=== PATIENT | female | born 1970 ===

== ENCOUNTER 2017-10-29 08:03 | Emergency (ER) | payer MEDICAID ==
[2017-10-29 08:10] VITALS: BMI 30.1
[2017-10-29 08:12] VITALS: BP 152/99; PULSE 93; RESP 20; TEMP 98.1; O2SAT 98
--- NOTE | 2017-10-29 08:43 | ED PDOC ---
Upper Extremity Pain/Injury Time Seen by Provider: 10/29/17 08:25 Chief Complaint (Nursing): Upper Extremity Problem/Injury Chief Complaint (Provider): left shoulder pain History Per: Patient History/Exam Limitations: no limitations Onset/Duration Of Symptoms: Days (x3) Current Symptoms Are (Timing): Still Present Quality: "Pain" Exacerbating Factor(s): Other (dangling of arm) Additional Complaint(s): Olimpia Morgan is a 47 year old female, with a past medical history of diabetes and HTN, who presents to the emergency department complaining of left shoulder pain onset for x3 days. Patient states pain is worst when arm is dangling. She denies any trauma or injuries, weakness, paresthesias, chest pain or shortness of breath. No further medical complaints. PMD: None provided. Past Medical History Reviewed: Historical Data, Nursing Documentation, Vital Signs Vital Signs: Last Vital Signs Temp 98.1 F 10/29/17 08:10 Pulse 93 H 10/29/17 08:10 Resp 20 10/29/17 08:10 BP 152/99 H 10/29/17 08:10 Pulse Ox 98 10/29/17 08:10 - Medical History PMH: Diabetes, HTN Denies: Hepatitis, HIV, Chronic Kidney Disease, Seizures, Sexually Transmitted Disease - Surgical History Surgical History: No Surg Hx - Family History Family History: States: Unknown Family Hx - Social History Current smoker - smoking cessation education provided: Yes (Heavy smoker) - Immunization History Hx Tetanus Toxoid Vaccination: Yes (4 yrs ago) - Home Medications Home Medications: Ambulatory Orders Medication Instructions Recorded Insulin Aspart, Recombinant 30 units SC HS 04/29/16 [Novolog] Insulin Glargine, Recombina 10 units SC BID 04/29/16 [Lantus] Lisinopril [Zestril] 1 tab PO DAILY 04/29/16 Metformin HCl [Glucophage Xr] 1 tab PO DAILY 04/29/16 Omeprazole 1 cap PO DAILY 04/29/16 Gabapentin [Neurontin] 300 mg PO HS #30 cap 05/02/16 Nicotine 14 mg/24 hr [Nicoderm CQ] 1 patch TD DAILY #0 patch 05/02/16 Cyclobenzaprine [Cyclobenzaprine 10 mg PO Q8 #10 tab 10/29/17 HCl] Naproxen [Naprosyn] 500 mg PO Q12H #20 tab 10/29/17 - Allergies Allergies/Adverse Reactions: Allergies Allergy/AdvReac Type Severity Reaction Status Date / Time Penicillins Allergy RASH Verified 04/29/16 14:32 Review of Systems ROS Statement: Except As Marked, All Systems Reviewed And Found Negative Musculoskeletal: Positive for: Shoulder Pain (left ) Physical Exam - Reviewed Nursing Documentation Reviewed: Yes Vital Signs Reviewed: Yes - Physical Exam Appears: Positive for: Non-toxic Head Exam: Positive for: ATRAUMATIC, NORMOCEPHALIC Skin: Positive for: Normal Color, Warm, Dry Eye Exam: Positive for: Normal appearance Neck: Positive for: Painless ROM Cardiovascular/Chest: Positive for: Regular Rate, Rhythm. Negative for: Murmur Respiratory: Positive for: Normal Breath Sounds. Negative for: Respiratory Distress Pulses-Radial (L): 2+ Pulses-Radial (R): 2+ Extremity: Positive for: Normal ROM (full ROM of left shoulder), Tenderness ( posterior scapula. No motor/sensory deficits). Negative for: Deformity (left shoulder) Neurologic/Psych: Positive for: Alert, Oriented. Negative for: Motor/Sensory Deficits - ECG O2 Sat by Pulse Oximetry: 98 (RA) Pulse Ox Interpretation: Normal Medical Decision Making Medical Decision Making: Initial Plan: --Urine --Toradol 30 mg IM --Shoulder left [RAD] --Reevaluation 08:54 Shoulder X-Ray FINDINGS: BONES: No acute fracture or destructive bony lesion identified. JOINTS: Glenohumeral and acromioclavicular joints appear unremarkable. SOFT TISSUES: Soft tissue calcifications seen the region of rotator cuff suggestive of calcific tendinopathy. Clinically correlate further. MRI may be useful for further characterization if clinically warranted. OTHER FINDINGS: None. IMPRESSION: No acute fracture or dislocation left shoulder. Calcific tendinopathy suggested. Scribe Attestation: Documented by Jose Martin Gross, acting as a scribe for Naldo Vides MD Provider Scribe Attestation: All medical record entries made by the Scribe were at my direction and personally dictated by me. I have reviewed the chart and agree that the record accurately reflects my personal performance of the history, physical exam, medical decision making, and the department course for this patient. I have also personally directed, reviewed, and agree with the discharge instructions and disposition. Disposition - Clinical Impression Clinical Impression: Tendinitis - Patient ED Disposition Is Patient to be Admitted: No Counseled Patient/Family Regarding: Studies Performed, Diagnosis, Need For Followup, Rx Given - Disposition Referrals: [facility] [Outside] Disposition: Routine/Home Disposition Time: 10:21 Condition: FAIR Prescriptions: Cyclobenzaprine [Cyclobenzaprine HCl] 10 mg PO Q8 #10 tab Naproxen [Naprosyn] 500 mg PO Q12H #20 tab Instructions: Tendonitis Forms: [facility] (Frisian)
--- NOTE | 2017-10-29 08:55 | RAD ---
PROCEDURE: Radiographs of the Left Shoulder HISTORY: pain COMPARISON: No prior. FINDINGS: BONES: No acute fracture or destructive bony lesion identified. JOINTS: Glenohumeral and acromioclavicular joints appear unremarkable. SOFT TISSUES: Soft tissue calcifications seen the region of rotator cuff suggestive of calcific tendinopathy. Clinically correlate further. MRI may be useful for further characterization if clinically warranted. OTHER FINDINGS: None. IMPRESSION: No acute fracture or dislocation left shoulder. Calcific tendinopathy suggested.
== END 2017-10-29 10:37 | disposition home or self-care (01) ==
LOC: H.ER 08:03
DX: M75.22 Bicipital tendinitis, left shoulder (principal); E11.9 Type 2 diabetes mellitus without complications; Z88.0 Allergy status to penicillin; Z79.4 Long term (current) use of insulin; I10 Essential (primary) hypertension
CPT/HCPCS: 73030; 96372; 99283; J1885

== ENCOUNTER 2018-05-14 21:46 | Inpatient (IN) | payer MEDICAID ==
[2018-05-14 21:46] VITALS: BMI 30.1
[2018-05-14] MEDS ORDERED: Sodium Chloride 0.9% 1,000 ML IV STA (22:08)
--- NOTE | 2018-05-14 22:11 | ED PDOC ---
HPI: Abdomen Time Seen by Provider: 05/14/18 21:53 Chief Complaint (Nursing): Abdominal Pain Chief Complaint (Provider): abdominal pain History Per: Patient History/Exam Limitations: no limitations Onset/Duration Of Symptoms: Hrs (3) Current Symptoms Are (Timing): Still Present Location Of Pain/Discomfort: Epigastric Associated Symptoms: Nausea, Vomiting Additional Complaint(s): 48 y/o female history of hypertension, type II diabetes brought in by EMS for evaluation of epigastric abdominal pain x hours. Associated multiple episodes of vomiting. Denies fever, chest pain, shortness of breath, palpitations, changes in bowel movements, urinary symptoms, recent travel. Past Medical History Reviewed: Historical Data, Nursing Documentation, Vital Signs Vital Signs: Last Vital Signs Temp 97.9 F 05/14/18 21:52 Pulse 120 H 05/14/18 21:52 Resp 19 05/14/18 21:52 BP 119/69 05/14/18 21:52 Pulse Ox 97 05/14/18 21:52 - Medical History PMH: Diabetes, HTN Denies: Hepatitis, HIV, Chronic Kidney Disease, Seizures, Sexually Transmitted Disease - Surgical History Surgical History: - Family History Family History: States: Unknown Family Hx - Immunization History Hx Tetanus Toxoid Vaccination: Yes (4 yrs ago) - Home Medications Home Medications: Ambulatory Orders Medication Instructions Recorded Omeprazole 1 cap PO DAILY 04/29/16 Nicotine 14 mg/24 hr [Nicoderm CQ] 1 patch TD DAILY #0 patch 05/02/16 Gabapentin [Neurontin] 300 mg PO TID 05/15/18 Ibuprofen [Motrin Tab] 800 mg PO PRN PRN 05/15/18 Lisinopril [Zestril] 5 mg PO DAILY 05/15/18 MetFORMIN [glucOPHAGE] 1,000 mg PO BID 05/15/18 - Allergies Allergies/Adverse Reactions: Allergies Allergy/AdvReac Type Severity Reaction Status Date / Time Penicillins Allergy RASH Verified 04/29/16 14:32 Review of Systems ROS Statement: Except As Marked, All Systems Reviewed And Found Negative Gastrointestinal: Positive for: Nausea, Vomiting, Abdominal Pain Physical Exam - Reviewed Nursing Documentation Reviewed: Yes Vital Signs Reviewed: Yes - Physical Exam Appears: Positive for: Well, Non-toxic, Uncomfortable Head Exam: Positive for: ATRAUMATIC, NORMAL INSPECTION, NORMOCEPHALIC Skin: Positive for: Normal Color Eye Exam: Positive for: Normal appearance ENT: Positive for: Normal ENT Inspection Cardiovascular/Chest: Positive for: Regular Rate, Rhythm Respiratory: Positive for: Normal Breath Sounds Gastrointestinal/Abdominal: Positive for: Bowel Sounds, Soft, Tenderness (epigastric) Back: Positive for: Normal Inspection Extremity: Positive for: Normal ROM Neurologic/Psych: Positive for: Alert, Oriented (x) - Laboratory Results Result Diagrams: 05/14/18 22:20 05/14/18 22:20 - ECG ECG: Positive for: Viewed By Me (reviewed by ED attending) ECG Rhythm: Positive for: Sinus Tachycardia O2 Sat by Pulse Oximetry: 97 - Progress ED Course And Treament: -accucheck -cbc -cmp -lipase -urinalysis -abdomen limited u/s -IV zofran -IV pepcid -IV NS Bolud -IV reglan Date of service: 12/30/2017 History Epigastric pain. Vomiting. Comparison None. Technique Sonographic evaluation of the right upper quadrant of the abdomen. Findings Liver Measures 17.6 cm in length. Increased echogenicity of the liver parenchyma. Smooth contour. No mass. No intrahepatic bile duct dilatation. Gallbladder Gallbladder wall thickness is 0.15 mm. No wall edema. No gallstones. Negative [place] sign. Common bile duct Measures 0.34 mm. No stones. No dilatation. Pancreas Unclear. Pancreatic tail not seen. Pancreatic duct not visualized. Right kidney Measures 10.7 x 4.5 x 5.0 cm. Normal echogenicity. No calculus, mass, or hydronephrosis. Aorta Measures 1.5 cm. No aneurysmal dilatation. IVC Unremarkable. Other Findings None. Impression Mild fatty liver. Limited visualization of pancreas. Otherwise, unremarkable study. On re-eval, patient still with persistent pain, vomiting. CT abd/pelvis ordered CT SCAN OF THE ABDOMEN AND PELVIS WITH CONTRAST. CLINICAL HISTORY: Abdominal pain. TECHNIQUE: Multiple axial and coronal CT images were obtained through the abdomen and pelvis after administration of intravenous contrast material. COMPARISON: 09/06/2015. COMMENTS: Small sliding hiatal hernia, unchanged. Mild diffuse thickening of the mid aspect of the transverse colon. The liver is enlarged with decreased attenuation without mass or defect. There is no intra or extrahepatic biliary ductal dilatation. The spleen is normal. The gallbladder is within normal limits. The pancreas is of normal contour and attenuation characteristics. There is no evidence of adrenal mass. Both kidneys demonstrate prompt and equal nephrograms. The kidneys are normal in size, shape and configuration. There is no evidence of renal or ureteral mass. No renal or ureteral calculi are identified. There is no hydroureter or hydronephrosis. No evidence for appendicitis. There is no bowel wall thickening. No evidence for small or large bowel obstruction. There is no evidence of abdominal ascites or lymphadenopathy. There is no evidence of intrinsic or extrinsic bladder mass. There is no pelvic ascites or lymphadenopathy. Enlarged fibroid uterus. Images of the lung bases show no evidence of pleural or parenchymal mass. There are no pleural effusions. The bony structures are free of lytic or blastic lesions. IMPRESSION: Mild diffuse thickening of the mid aspect of the transverse colon. This is probably secondary to underdistention/spasm. No evidence of acute abdominal or pelvic pathology. Patient still with pain, vomiting. Will admit for intractable pain/vomiting, dehydration. Disposition - Clinical Impression Clinical Impression: Gastroparesis, Intractable vomiting, Dehydration - Disposition Disposition Time: 00:45 Condition: FAIR
[2018-05-14 22:34] LABS: BASO % 0.6 % (0.0-2.0); HEMOGLOBIN 15.5 g/dL (12.0-16.0); LYMPH # 1.1 K/uL (1.0-4.3); LYMPH % 16.7 % (20.0-40.0); MEAN CELL VOLUME 93.5 fl (81.0-99.0); MEAN CORPUSCULAR HGB CONC 33.2 g/dL (33.0-37.0); MEAN PLATELET VOLUME 7.7 fl (7.2-11.7); MONO # 0.3 K/uL (0.0-0.8); MONO % 4.5 % (0.0-10.0); NEUT # 5.3 K/uL (1.8-7.0); NEUT % 78.2 % (50.0-75.0); NRBC % 0.1 % (0.0-0.0); RBC 4.98 Mil/uL (3.80-5.20); RED CELL DISTRIBUTION WIDTH 13.9 % (11.5-14.5); WHITE BLOOD COUNT 6.8 K/uL (4.8-10.8)
[2018-05-14 22:43] LABS: ALB/GLOB RATIO 1.3 (1.0-2.1); ALBUMIN 5.4 g/dL (3.5-5.0); ALT/SGPT 115 U/L (9-52); AST/SGOT 155 U/L (14-36); BLOOD UREA NITROGEN 16 mg/dl (7-17); CALCIUM 10.6 mg/dL (8.4-10.2); GFR NON-AFRICAN AMERICAN > 60; LIPASE 95 U/L (23-300)
[2018-05-15 00:15] LABS: ABG ALLEN TEST YES; ARTERIAL BLOOD GAS HCO3 18.3 mmol/L (21-28); ARTERIAL BLOOD GAS HEMOGLOBIN 14.8 g/dL (11.7-17.4); ARTERIAL BLOOD GAS O2 CAPACITY 19.7 mL/dL (16-24); ARTERIAL BLOOD GAS O2 CONTENT 19.4 ML/dL (15-23); ARTERIAL BLOOD GAS O2 SAT 98.3 % (95-98); ARTERIAL BLOOD GAS PCO2 31 mm/Hg (35-45); ARTERIAL BLOOD GAS PH 7.33 (7.35-7.45); ARTERIAL BLOOD GAS PO2 89 mm/Hg (80-100); ARTERIAL BLOOD GAS TCO2 17.3 mmol/L (22-28)
[2018-05-15 00:32] LABS: URINE BILIRUBIN NEGATIVE (NEGATIVE); URINE BLOOD NEGATIVE (NEGATIVE); URINE CLARITY SLIGHTY-CLOUDY (Clear); URINE COLOR AMBER (YELLOW); URINE GLUCOSE (UA) 150 mg/dL (Normal); URINE LEUKOCYTE ESTERASE NEG Leu/uL (Negative); URINE PROTEIN 30 mg/dL (NEGATIVE); URINE UROBILINOGEN 0.2-1.0 mg/dL (0.2-1.0)
[2018-05-15] MEDS ORDERED: Morphine 4 MG/ML VIAL IV ONE (00:34)
[2018-05-15] MEDS ORDERED: Sodium Chloride 0.9% 1,000 ML IV STA ×2 (00:36→00:39)
[2018-05-15] MEDS ORDERED: Morphine 4 MG/ML VIAL ONE ×3 (00:38→06:33)
[2018-05-15] MEDS ORDERED: Iohexol 300 100 ML IJ ONE (00:53)
[2018-05-15] MEDS ORDERED: Sodium Chloride 0.9% 50 ML IV ONE (00:53)
[2018-05-15] MEDS: Sodium Chloride 0.9% 1,000 ML IV SCH ×3 (06:42→22:50)
--- NOTE | 2018-05-15 07:33 | RAD ---
Date of service: 05/15/2018 HISTORY: admit COMPARISON: 04/29/2016 FINDINGS: LUNGS: No active pulmonary disease. PLEURA: No significant pleural effusion identified, no pneumothorax apparent. CARDIOVASCULAR: No aortic atherosclerotic calcification present. Normal cardiac size. No pulmonary vascular congestion. OSSEOUS STRUCTURES: Slight rightward thoracic convexity.-may be positional VISUALIZED UPPER ABDOMEN: Normal. OTHER FINDINGS: None. IMPRESSION: No active disease.
--- NOTE | 2018-05-15 07:47 | CARD ---
APPROVED REPORT Date of service: 05/15/2018 EKG Measurement Heart [id number] <Conclusion> Sinus tachycardia Otherwise normal ECG
--- NOTE | 2018-05-15 08:13 | CT ---
Date of service: 05/15/2018 PROCEDURE: CT Abdomen and Pelvis with contrast HISTORY: upper abd pain, vomiting COMPARISON: 09/06/2015 TECHNIQUE: Contrast dose: 90 mL Omnipaque 300 Radiation dose: Total exam DLP = 713 mGy-cm. This CT exam was performed using one or more of the following dose reduction techniques: Automated exposure control, adjustment of the mA and/or kV according to patient size, and/or use of iterative reconstruction technique. FINDINGS: LOWER THORAX: On single image 4 mm ground-glass opacity pleural-based borders lingula and likely perifissural. Nonspecific of doubtful clinical significance. Mitral annular prominent calcifications apparent unusual for this patient's age. Consider cardiology consultation. LIVER: Diffuse fatty liver-similar. No gross lesion or ductal dilatation. GALLBLADDER AND BILE DUCTS: Unremarkable. PANCREAS: Unremarkable. No gross lesion or ductal dilatation. SPLEEN: Unremarkable. ADRENALS: Unremarkable. No mass. KIDNEYS AND URETERS: Unremarkable. No hydronephrosis. No solid mass. VASCULATURE: Suspect mitral annular prominent calcification and bilateral scattered atherosclerotic vascular calcifications for example at each groin noted. No aortic aneurysm. There is presence of aortic atherosclerotic calcification and mural plaque on cross sectional studies. BOWEL: Unremarkable. No obstruction. No gross mural thickening. APPENDIX: Normal appendix. PERITONEUM: Unremarkable. No free fluid. No free air. LYMPH NODES: Unremarkable. No enlarged lymph nodes. BLADDER: Bladder is underdistended and compressed by a enlarged (inferred) fibroid uterus. Few nabothian cysts also possible REPRODUCTIVE: . Enlarged (inferred) fibroid uterus. Few nabothian cysts also possible BONES: No acute fracture. OTHER FINDINGS: None. IMPRESSION: No bowel obstruction or free air. No mural thickening. No diverticulitis. No appendicitis. Enlarged fibroid uterus. Hepatic steatosis Suspect mitral annular prominent calcification and bilateral scattered atherosclerotic vascular calcifications for example at each groin noted. No aortic aneurysm. There is presence of aortic atherosclerotic calcification and mural plaque on cross sectional studies. Consider cardiology consultation for further evaluation patient is 48 years of age is noted . Excluding the cardiovascular and liver findings, the preliminary [facility] report is concordant
[2018-05-15 08:31] LABS: BASO # 0.1 K/uL (0.0-0.2); BASO % 0.7 % (0.0-2.0); EOS % 0.1 % (0.0-4.0); HEMOGLOBIN 12.3 g/dL (12.0-16.0); LYMPH # 1.9 K/uL (1.0-4.3); LYMPH % 26.7 % (20.0-40.0); MEAN CELL VOLUME 94.7 fl (81.0-99.0); MEAN CORPUSCULAR HEMOGLOBIN 31.3 pg (27.0-31.0); MEAN CORPUSCULAR HGB CONC 33.1 g/dL (33.0-37.0); MEAN PLATELET VOLUME 7.4 fl (7.2-11.7); MONO # 0.6 K/uL (0.0-0.8); MONO % 7.8 % (0.0-10.0); NEUT # 4.7 K/uL (1.8-7.0); NEUT % 64.7 % (50.0-75.0); NRBC % 0.1 % (0.0-0.0); RBC 3.93 Mil/uL (3.80-5.20); RED CELL DISTRIBUTION WIDTH 13.9 % (11.5-14.5); WHITE BLOOD COUNT 7.2 K/uL (4.8-10.8)
--- NOTE | 2018-05-15 08:51 | US ---
Date of service: 05/14/2018 HISTORY: epigastric pain, vomiting COMPARISON: None. TECHNIQUE: Sonographic evaluation of the right upper quadrant of the abdomen. FINDINGS: LIVER: Measures 17.6 cm in length. Slight diffuse increased echogenicity of the liver parenchyma. No mass. No intrahepatic bile duct dilatation. GALLBLADDER: Unremarkable. No gallstones. COMMON BILE DUCT: Measures 3.4 mm. No stones. No dilatation. PANCREAS: Unremarkable as visualized. Pancreatic tail is not clearly identified No mass. No ductal dilatation. RIGHT KIDNEY: Measures 10.7 x 4.5 x 5.0 cm in length. Normal echogenicity. No calculus, mass, or hydronephrosis. AORTA: No aneurysmal dilatation. IVC: Unremarkable. OTHER FINDINGS: None . IMPRESSION: Probable mild hepatic steatosis. Pancreatic tail not clearly identified. No pathology appreciated regarding the portions of the pancreas visualized Concordant results (preliminary interpretation) provided by [facility].
[2018-05-15 09:03] LABS: ALB/GLOB RATIO 1.4 (1.0-2.1); ALT/SGPT 78 U/L (9-52); AST/SGOT 72 U/L (14-36); BLOOD UREA NITROGEN 12 mg/dl (7-17); CALCIUM 8.8 mg/dL (8.4-10.2); GFR NON-AFRICAN AMERICAN > 60; HDL CHOLESTEROL 72 MG/DL (30-70)
[2018-05-15 09:04] LABS: LDL CHOLESTEROL 75 mg/dL (0-129)
[2018-05-15 09:32] LABS: SQUAMOUS EPITHIAL < 1 /hpf (0-5); URINE BILIRUBIN NEGATIVE (NEGATIVE); URINE BLOOD NEGATIVE (NEGATIVE); URINE CLARITY SLIGHTY-CLOUDY (Clear); URINE COLOR YELLOW (YELLOW); URINE GLUCOSE (UA) 50 mg/dL (Normal); URINE LEUKOCYTE ESTERASE NEG Leu/uL (Negative); URINE PROTEIN 30 mg/dL (NEGATIVE)
--- NOTE | 2018-05-15 16:12 | CP.PCM.HP ---
History of Present Illness - History of Present Illness History of Present Illness: CC: Abdominal pain. 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 Worsening symptoms: Tachycardia on EKG. Aggravated factor: Position change. Pt denied: Fever, chills, diarrhea, urinary symptoms, CP, palpitations, dizziness, SOB, cough, sick contact, recent travel out of [place]. Abd/Pelv CT with contrast: Hepatic Steatosis. Enlarged fibroid uterus. Atherosclerotic vascular calcifications, Aortic atherosclerotic calcification and mural plaque on cross sectional studies. CXR: No active disease. EKG: Sinus tachycardia. Present on Admission - Present on Admission Any Indicators Present on Admission: No Review of Systems - EENT Eyes: Requires Corrective Lenses Ears: Other (negative) Nose/Mouth/Throat: Other (negative) - Cardiovascular Cardiovascular: Other (negative) - Respiratory Respiratory: Other (negative) - Gastrointestinal Gastrointestinal: Abdominal Pain, Nausea, Vomiting - Genitourinary Genitourinary: Other (negative) - Musculoskeletal Musculoskeletal: Other (negative) - Integumentary Integumentary: Other (negative) - Neurological Neurological: Other (negative) - Psychiatric Psychiatric: Other (negative) - Endocrine Endocrine: Other (negative) - Hematologic/Lymphatic Hematologic: Other (negative) Past Patient History - Infectious Disease Hx of Infectious Diseases: None - Tetanus Immunizations Tetanus Immunization: Unknown - Past Medical History & Family History Past Medical History?: Yes Pertinent Family History: Unknown - Past Social History Smoking Status: Light Smoker < 10 Cigarettes Daily Alcohol: < 2 Drinks/Day Drugs: Denies Home Situation {Lives}: Alone - CARDIAC Hx Cardiac Disorders: Yes Hx Hypertension: Yes - PULMONARY Hx Respiratory Disorders: No Hx Tuberculosis: No - NEUROLOGICAL Hx Neurological Disorder: No Hx Seizures: No - HEENT Hx HEENT Problems: No - RENAL Hx Chronic Kidney Disease: No - ENDOCRINE/METABOLIC Hx Endocrine Disorders: Yes Hx Diabetes Mellitus Type 2: Yes - HEMATOLOGICAL/ONCOLOGICAL Hx Blood Disorders: No Hx AIDS: No Hx Human Immunodeficiency Virus (HIV): No - INTEGUMENTARY Hx Dermatological Problems: No - MUSCULOSKELETAL/RHEUMATOLOGICAL Hx Musculoskeletal Disorders: Yes Hx Falls: Yes (1 time only) - GASTROINTESTINAL Hx Gastrointestinal Disorders: Yes Hx Gastroesophageal Reflux: Yes - GENITOURINARY/GYNECOLOGICAL Hx Genitourinary Disorders: No Hx Sexually Transmitted Disorders: No - PSYCHIATRIC Hx Psychophysiologic Disorder: No Hx Substance Use: No - SURGICAL HISTORY Hx Surgeries: Yes Hx Section: Yes (3X) Hx Tubal Ligation: Yes - ANESTHESIA Hx Anesthesia: Yes Hx Anesthesia Reactions: No Meds Allergies/Adverse Reactions: Allergies Allergy/AdvReac Type Severity Reaction Status Date / Time Penicillins Allergy RASH Verified 04/29/16 14:32 Physical Exam - Constitutional Appears: No Acute Distress - Head Exam Head Exam: NORMAL INSPECTION - Eye Exam Eye Exam: PERRL - ENT Exam ENT Exam: Normal Exam - Neck Exam Neck exam: Positive for: Normal Inspection - Respiratory Exam Respiratory Exam: Clear to Auscultation Bilateral - Cardiovascular Exam Cardiovascular Exam: REGULAR RHYTHM - GI/Abdominal Exam GI & Abdominal Exam: Normal Bowel Sounds, Soft. absent: Distended, Tenderness - Extremities Exam Extremities exam: Positive for: normal inspection - Back Exam Back exam: NORMAL INSPECTION - Neurological Exam Neurological exam: Alert, Oriented x3 - Psychiatric Exam Psychiatric exam: Normal Mood - Skin Skin Exam: Warm Results - Vital Signs Recent Vital Signs: Last Vital Signs Temp 98.4 F 05/15/18 14:31 Pulse 88 05/15/18 14:56 Resp 20 05/15/18 14:56 BP 116/69 05/15/18 14:31 Pulse Ox 100 05/15/18 14:31 reviewed J.PGeraldine - Labs Result Diagrams: 05/15/18 08:17 05/15/18 08:17 Labs: Laboratory Results - last 24 hr 05/14/18 05/14/18 05/15/18 22:20 22:20 00:09 WBC 6.8 RBC 4.98 Hgb 15.5 D Hct 46.6 MCV 93.5 D MCH 31.0 MCHC 33.2 RDW 13.9 Plt Count 367 MPV 7.7 Neut % (Auto) 78.2 H Lymph % (Auto) 16.7 L [place] % (Auto) 4.5 Eos % (Auto) 0.0 Baso % (Auto) 0.6 Neut # (Auto) 5.3 Lymph # (Auto) 1.1 [place] # (Auto) 0.3 Eos # (Auto) 0.0 Baso # (Auto) 0.0 pCO2 31 L pO2 89 HCO3 18.3 L ABG pH 7.33 L ABG Total CO2 17.3 L ABG O2 Saturation 98.3 H ABG O2 Content 19.4 ABG Base Excess -8.3 L ABG Hemoglobin 14.8 ABG Carboxyhemoglobin 3.7 H POC ABG HHb (Measured) 1.6 ABG Methemoglobin 1.8 ABG O2 Capacity 19.7 Arvin Test Yes A-a O2 Difference 22.0 Hgb O2 Saturation 93.0 L FiO2 21.0 Sodium 135 Potassium 4.2 Chloride 94 L Carbon Dioxide 20 L Anion Gap 25 H BUN 16 Creatinine 0.8 Est GFR ( Amer) > 60 Est GFR (Non-Af Amer) > 60 POC Glucose (mg/dL) Random Glucose 243 H Hemoglobin A1c Calcium 10.6 H Total Bilirubin 0.7 AST 155 H D ALT 115 H Alkaline Phosphatase 72 Total Protein 9.4 H Albumin 5.4 H Globulin 4.1 H Albumin/Globulin Ratio 1.3 Triglycerides Cholesterol LDL Cholesterol Direct HDL Cholesterol Lipase 95 Thyroxine (T4) TSH 3rd Generation Urine Color Urine Clarity Urine pH Ur Specific [place] Urine Protein Urine Glucose (UA) Urine Ketones Urine Blood Urine Nitrate Urine Bilirubin Urine Urobilinogen Ur Leukocyte Esterase Urine RBC (Auto) Ur Squamous Epith Cells 05/15/18 05/15/18 05/15/18 00:27 08:13 08:17 WBC 7.2 RBC 3.93 Hgb 12.3 D Hct 37.2 MCV 94.7 MCH 31.3 H MCHC 33.1 RDW 13.9 Plt Count 304 MPV 7.4 Neut % (Auto) 64.7 Lymph % (Auto) 26.7 [place] % (Auto) 7.8 Eos % (Auto) 0.1 Baso % (Auto) 0.7 Neut # (Auto) 4.7 Lymph # (Auto) 1.9 [place] # (Auto) 0.6 Eos # (Auto) 0.0 Baso # (Auto) 0.1 pCO2 pO2 HCO3 ABG pH ABG Total CO2 ABG O2 Saturation ABG O2 Content ABG Base Excess ABG Hemoglobin ABG Carboxyhemoglobin POC ABG HHb (Measured) ABG Methemoglobin ABG O2 Capacity Arvin Test A-a O2 Difference Hgb O2 Saturation FiO2 Sodium Potassium Chloride Carbon Dioxide Anion Gap BUN Creatinine Est GFR ( Amer) Est GFR (Non-Af Amer) POC Glucose (mg/dL) 150 H Random Glucose Hemoglobin A1c Calcium Total Bilirubin AST ALT Alkaline Phosphatase Total Protein Albumin Globulin Albumin/Globulin Ratio Triglycerides Cholesterol LDL Cholesterol Direct HDL Cholesterol Lipase Thyroxine (T4) TSH 3rd Generation Urine Color [place] Urine Clarity Slighty-cloudy Urine pH 5.0 Ur Specific [place] 1.027 Urine Protein 30 Urine Glucose (UA) 150 Urine Ketones 20 Urine Blood Negative Urine Nitrate Negative Urine Bilirubin Negative Urine Urobilinogen 0.2-1.0 Ur Leukocyte Esterase Neg Urine RBC (Auto) Ur Squamous Epith Cells 05/15/18 05/15/18 05/15/18 08:17 08:17 08:58 WBC RBC Hgb Hct MCV MCH MCHC RDW Plt Count MPV Neut % (Auto) Lymph % (Auto) [place] % (Auto) Eos % (Auto) Baso % (Auto) Neut # (Auto) Lymph # (Auto) [place] # (Auto) Eos # (Auto) Baso # (Auto) pCO2 pO2 HCO3 ABG pH ABG Total CO2 ABG O2 Saturation ABG O2 Content ABG Base Excess ABG Hemoglobin ABG Carboxyhemoglobin POC ABG HHb (Measured) ABG Methemoglobin ABG O2 Capacity Arvin Test A-a O2 Difference Hgb O2 Saturation FiO2 Sodium 136 Potassium 3.8 Chloride 104 Carbon Dioxide 21 L Anion Gap 15 BUN 12 Creatinine 0.5 L Est GFR ( Amer) > 60 Est GFR (Non-Af Amer) > 60 POC Glucose (mg/dL) Random Glucose 147 H Hemoglobin A1c 7.1 H Calcium 8.8 Total Bilirubin 0.7 AST 72 H D ALT 78 H D Alkaline Phosphatase 46 Total Protein 6.9 Albumin 4.0 Globulin 2.9 Albumin/Globulin Ratio 1.4 Triglycerides 61 D Cholesterol 151 LDL Cholesterol Direct 75 HDL Cholesterol 72 H Lipase Thyroxine (T4) 7.90 TSH 3rd Generation 0.22 L Urine Color Yellow Urine Clarity Slighty-cloudy Urine pH 6.0 Ur Specific [place] 1.048 H Urine Protein 30 Urine Glucose (UA) 50 Urine Ketones 20 Urine Blood Negative Urine Nitrate Negative Urine Bilirubin Negative Urine Urobilinogen 1.0 Ur Leukocyte Esterase Neg Urine RBC (Auto) < 1 Ur Squamous Epith Cells < 1 05/15/18 15:55 WBC RBC Hgb Hct MCV MCH MCHC RDW Plt Count MPV Neut % (Auto) Lymph % (Auto) [place] % (Auto) Eos % (Auto) Baso % (Auto) Neut # (Auto) Lymph # (Auto) [place] # (Auto) Eos # (Auto) Baso # (Auto) pCO2 pO2 HCO3 ABG pH ABG Total CO2 ABG O2 Saturation ABG O2 Content ABG Base Excess ABG Hemoglobin ABG Carboxyhemoglobin POC ABG HHb (Measured) ABG Methemoglobin ABG O2 Capacity Arvin Test A-a O2 Difference Hgb O2 Saturation FiO2 Sodium Potassium Chloride Carbon Dioxide Anion Gap BUN Creatinine Est GFR ( Amer) Est GFR (Non-Af Amer) POC Glucose (mg/dL) 212 H Random Glucose Hemoglobin A1c Calcium Total Bilirubin AST ALT Alkaline Phosphatase Total Protein Albumin Globulin Albumin/Globulin Ratio Triglycerides Cholesterol LDL Cholesterol Direct HDL Cholesterol Lipase Thyroxine (T4) TSH 3rd Generation Urine Color Urine Clarity Urine pH Ur Specific [place] Urine Protein Urine Glucose (UA) Urine Ketones Urine Blood Urine Nitrate Urine Bilirubin Urine Urobilinogen Ur Leukocyte Esterase Urine RBC (Auto) Ur Squamous Epith Cells reviewed J.P. - EKG Data EKG comments: reviewed J.P. - Imaging and Cardiology US - abdomen Status: Report reviewed by me (Mirella) CT scan - abdomen Status: Report reviewed by me (Mirella) CT scan - pelvis Status: Report reviewed by me (Mirella) Chest x-ray Status: Report reviewed by me (Hernesto.) Assessment & Plan (1) Abdominal pain Status: Acute Priority: High (2) Hepatic steatosis Status: Acute Priority: High (3) Gastroparesis Status: Chronic Priority: High (4) DM2 (diabetes mellitus, type 2) Status: Chronic Priority: Medium (5) HTN (hypertension) Status: Chronic Priority: Medium - Assessment and Plan (Free Text) Plan: F/U Echo, Urine C-S, continue morphine, Zestril, Glucophage, Glucotrol, Pepcid and rest of Tx. Endocrinology and Cardiology consult. - Date & Time Date: 05/15/18 Time: 14:10
[2018-05-15] MEDS ORDERED: Insulin Regular 100 units/ml SC SCH (16:30)
[2018-05-15] MEDS ORDERED: Morphine 4 MG/ML VIAL IVP PRN (16:30)
[2018-05-15] MEDS: Insulin Regular 100 units/ml SC SCH (17:53)
--- NOTE | 2018-05-15 23:53 | CON ---
DATE: 05/15/2018 ENDOCRINOLOGY CONSULTATION LOCATION: Room 660. HISTORY OF PRESENT ILLNESS: This is a 48-year-old female with recent admission for severe epigastric pain with supervening intractable vomiting episodes and is now being admitted for management of diabetic gastroparesis and is being referred now for diabetic evaluation and management. PAST MEDICAL HISTORY: As mentioned above, history of type 2 diabetes, currently on metformin given as 1 g b.i.d.; history of hypertension and dyslipidemia; history of diabetic gastroparesis with previous admissions for exacerbations of the same. FAMILY HISTORY: Positive for diabetes and hypertension. SOCIAL HISTORY: The patient has a supportive family. Admits to current active smoker at this time. REVIEW OF SYSTEMS: Admits to generalized body weakness with progressive bouts of dizziness and lightheadedness, worse on the day of admission. No chest pains, palpitations or PNDs. Her oral intake has been suboptimal and variable with nausea, dyspepsia, and diffuse upper abdominal pain with supervening intractable vomiting episodes. No recent alterations of bowel or urinary patterns. PHYSICAL EXAMINATION: GENERAL: Overweight female, in no apparent distress. VITAL SIGNS: With a blood pressure of 140/80, pulse of 70 beats per minute and regular, temperature 98, respirations 20. Height is 5 feet 1 inch. Weight is 178 pounds. HEENT: Head is normocephalic. Eyes anicteric with pink conjunctivae. Funduscopy is not possible at this time. Ears, nose, and throat otherwise normal. NECK: Supple. Thyroid gland is normal in size. No carotid bruits or cervical adenopathy. CARDIOPULMONARY: Some adynamic precordium. S1 and S2 are rapid and regular. LUNGS: Clear to auscultation. ABDOMEN: Flat, soft with positive bowel sounds. EXTREMITIES: No peripheral edema. Pulses are +2 bilaterally. LABORATORY DATA: Her chemistries showed a BUN of 16, sodium 135, potassium 4.2, chloride 94, CO2 of 20, glucose 243 and creatinine 0.8. She has also slightly elevated liver transaminases. Her hemoglobin A1c is 7.1%. TSH is 0.22, indicative of the so-called acute sick euthyroid syndrome as noted. ASSESSMENT: This is a 48-year-old female with uncontrolled and decompensated type 2 diabetes, presenting here with acute exacerbation of diabetic gastroparesis with near optimal metabolic control of her diabetic condition only on oral hypoglycemic therapy as given. PLAN OF MANAGEMENT: With the intercurrent GI related symptoms with intractable nausea, dyspepsia and vomiting, we will hold off the metformin therapy at this time as this can contribute to the above mentioned symptomatology. We will add glipizide given as 5 mg b.i.d. before meals to start today as ordered. We will obtain serial chemistries and supplement accordingly as needed. We will follow. Christi Jimenez MD
[2018-05-16] MEDS: Sodium Chloride 0.9% 1,000 ML IV SCH ×3 (00:07→06:02)
[2018-05-16] MEDS: Insulin Regular 100 units/ml SC SCH ×3 (00:09→13:42)
[2018-05-16 03:18] VITALS: O2SAT 99
[2018-05-16 06:40] LABS: T4 7.42 ug/dl (5.5-11.0)
--- NOTE | 2018-05-16 08:00 | CP.PCM.CON ---
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 the patient denies any cardiac problems EKG: Sinus Tachycardia Onexam the HR was 68 BPM Past Patient History - Infectious Disease Hx of Infectious Diseases: None - Tetanus Immunizations Tetanus Immunization: Unknown - Past Medical History & Family History Past Medical History?: Yes - Past Social History Smoking Status: Light Smoker < 10 Cigarettes Daily Alcohol: < 2 Drinks/Day Drugs: Denies Home Situation {Lives}: Alone - CARDIAC Hx Cardiac Disorders: Yes Hx Hypertension: Yes - PULMONARY Hx Respiratory Disorders: No Hx Tuberculosis: No - NEUROLOGICAL Hx Neurological Disorder: No Hx Seizures: No - HEENT Hx HEENT Problems: No - RENAL Hx Chronic Kidney Disease: No - ENDOCRINE/METABOLIC Hx Endocrine Disorders: Yes Hx Diabetes Mellitus Type 2: Yes - HEMATOLOGICAL/ONCOLOGICAL Hx Blood Disorders: No Hx AIDS: No Hx Human Immunodeficiency Virus (HIV): No - INTEGUMENTARY Hx Dermatological Problems: No - MUSCULOSKELETAL/RHEUMATOLOGICAL Hx Musculoskeletal Disorders: Yes Hx Falls: Yes (1 time only) - GASTROINTESTINAL Hx Gastrointestinal Disorders: Yes Hx Gastroesophageal Reflux: Yes - GENITOURINARY/GYNECOLOGICAL Hx Genitourinary Disorders: No Hx Sexually Transmitted Disorders: No - PSYCHIATRIC Hx Psychophysiologic Disorder: No Hx Substance Use: No - SURGICAL HISTORY Hx Surgeries: Yes Hx Section: Yes (3X) Hx Tubal Ligation: Yes - ANESTHESIA Hx Anesthesia: Yes Hx Anesthesia Reactions: No Meds Allergies/Adverse Reactions: Allergies Allergy/AdvReac Type Severity Reaction Status Date / Time Penicillins Allergy RASH Verified 04/29/16 14:32 - Medications Medications: Current Medications Diphenhydramine HCl (Benadryl) 50 mg PO HS PRN PRN Reason: Sleep Last Admin: 05/16/18 00:04 Dose: 50 mg Gabapentin (Neurontin) 300 mg PO TID [facility] Last Admin: 05/15/18 17:55 Dose: 300 mg Glipizide (Glucotrol) 5 mg PO BID [facility] Last Admin: 05/15/18 17:48 Dose: 5 mg Insulin Human Regular (Humulin R) 0 units SC ACHS [facility]; Protocol Last Admin: 05/16/18 07:07 Dose: Not Given Lisinopril (Zestril) 5 mg PO DAILY [facility] Last Admin: 05/15/18 09:00 Dose: 5 mg Metformin HCl (Glucophage) 1,000 mg PO BID [facility] Last Admin: 05/15/18 08:59 Dose: 1,000 mg Morphine Sulfate (Morphine) 2 mg IVP Q4 PRN PRN Reason: Pain, moderate (4-7) Last Admin: 05/15/18 22:37 Dose: 2 mg Nicotine (Nicoderm Cq) 1 patch TD DAILY [facility] Last Admin: 05/15/18 09:00 Dose: 1 patch Pantoprazole Sodium (Protonix Inj) 40 mg IVP DAILY [facility] Last Admin: 05/15/18 10:46 Dose: 40 mg Physical Exam - Constitutional Appears: Well - Head Exam Head Exam: NORMAL INSPECTION - Eye Exam Eye Exam: Normal appearance - ENT Exam ENT Exam: Normal Exam - Respiratory Exam Respiratory Exam: NORMAL BREATHING PATTERN - Cardiovascular Exam Cardiovascular Exam: REGULAR RHYTHM Results - Vital Signs Recent Vital Signs: Last Vital Signs Temp 98.3 F 05/16/18 03:17 Pulse 80 05/16/18 03:17 Resp 20 05/16/18 03:17 BP 129/89 05/16/18 03:17 Pulse Ox 99 05/16/18 03:17 - Labs Result Diagrams: 05/15/18 08:17 05/15/18 08:17 Labs: Laboratory Results - last 24 hr 05/15/18 05/15/18 05/15/18 08:13 08:17 08:17 WBC 7.2 RBC 3.93 Hgb 12.3 D Hct 37.2 MCV 94.7 MCH 31.3 H MCHC 33.1 RDW 13.9 Plt Count 304 MPV 7.4 Neut % (Auto) 64.7 Lymph % (Auto) 26.7 [place] % (Auto) 7.8 Eos % (Auto) 0.1 Baso % (Auto) 0.7 Neut # (Auto) 4.7 Lymph # (Auto) 1.9 [place] # (Auto) 0.6 Eos # (Auto) 0.0 Baso # (Auto) 0.1 Sodium 136 Potassium 3.8 Chloride 104 Carbon Dioxide 21 L Anion Gap 15 BUN 12 Creatinine 0.5 L Est GFR ( Amer) > 60 Est GFR (Non-Af Amer) > 60 POC Glucose (mg/dL) 150 H Random Glucose 147 H Hemoglobin A1c Calcium 8.8 Total Bilirubin 0.7 AST 72 H D ALT 78 H D Alkaline Phosphatase 46 Total Protein 6.9 Albumin 4.0 Globulin 2.9 Albumin/Globulin Ratio 1.4 Triglycerides 61 D Cholesterol 151 LDL Cholesterol Direct 75 HDL Cholesterol 72 H Thyroxine (T4) 7.90 TSH 3rd Generation 0.22 L Urine Color Urine Clarity Urine pH Ur Specific [place] Urine Protein Urine Glucose (UA) Urine Ketones Urine Blood Urine Nitrate Urine Bilirubin Urine Urobilinogen Ur Leukocyte Esterase Urine RBC (Auto) Ur Squamous Epith Cells 05/15/18 05/15/18 05/15/18 08:17 08:58 15:55 WBC RBC Hgb Hct MCV MCH MCHC RDW Plt Count MPV Neut % (Auto) Lymph % (Auto) [place] % (Auto) Eos % (Auto) Baso % (Auto) Neut # (Auto) Lymph # (Auto) [place] # (Auto) Eos # (Auto) Baso # (Auto) Sodium Potassium Chloride Carbon Dioxide Anion Gap BUN Creatinine Est GFR ( Amer) Est GFR (Non-Af Amer) POC Glucose (mg/dL) 212 H Random Glucose Hemoglobin A1c 7.1 H Calcium Total Bilirubin AST ALT Alkaline Phosphatase Total Protein Albumin Globulin Albumin/Globulin Ratio Triglycerides Cholesterol LDL Cholesterol Direct HDL Cholesterol Thyroxine (T4) TSH 3rd Generation Urine Color Yellow Urine Clarity Slighty-cloudy Urine pH 6.0 Ur Specific [place] 1.048 H Urine Protein 30 Urine Glucose (UA) 50 Urine Ketones 20 Urine Blood Negative Urine Nitrate Negative Urine Bilirubin Negative Urine Urobilinogen 1.0 Ur Leukocyte Esterase Neg Urine RBC (Auto) < 1 Ur Squamous Epith Cells < 1 05/15/18 05/16/18 05/16/18 22:30 05:55 06:10 WBC RBC Hgb Hct MCV MCH MCHC RDW Plt Count MPV Neut % (Auto) Lymph % (Auto) [place] % (Auto) Eos % (Auto) Baso % (Auto) Neut # (Auto) Lymph # (Auto) [place] # (Auto) Eos # (Auto) Baso # (Auto) Sodium Potassium Chloride Carbon Dioxide Anion Gap BUN Creatinine Est GFR ( Amer) Est GFR (Non-Af Amer) POC Glucose (mg/dL) 153 H 91 Random Glucose Hemoglobin A1c Calcium Total Bilirubin AST ALT Alkaline Phosphatase Total Protein Albumin Globulin Albumin/Globulin Ratio Triglycerides 108 D Cholesterol 125 LDL Cholesterol Direct 65 HDL Cholesterol 57 Thyroxine (T4) 7.42 TSH 3rd Generation 0.33 L Urine Color Urine Clarity Urine pH Ur Specific [place] Urine Protein Urine Glucose (UA) Urine Ketones Urine Blood Urine Nitrate Urine Bilirubin Urine Urobilinogen Ur Leukocyte Esterase Urine RBC (Auto) Ur Squamous Epith Cells Assessment & Plan (1) Intractable vomiting Status: Acute (2) Gastroparesis Status: Chronic Priority: High (3) DM2 (diabetes mellitus, type 2) Status: Chronic Priority: Medium (4) HTN (hypertension) Status: Chronic Priority: Medium (5) Sinus tachycardia by electrocardiogram Assessment and Plan: pt is in NSR @ 68 BPM at present Status: Acute
[2018-05-16 09:15] VITALS: BP 154/94; PULSE 79; RESP 18; TEMP 99
--- NOTE | 2018-05-16 15:20 | CP.PCM.DIS ---
Provider - Provider Date of Admission: 05/15/18 00:39 Attending physician: Bry Matta MD Diagnosis - Discharge Diagnosis (1) Abdominal pain Status: Acute Priority: High (2) Hepatic steatosis Status: Acute Priority: High (3) Gastroparesis Status: Chronic Priority: High (4) DM2 (diabetes mellitus, type 2) Status: Chronic Priority: Medium (5) HTN (hypertension) Status: Chronic Priority: Medium Hospital Course - Lab Results Lab Results: Micro Results 05/15/18 08:58 Urine Urine Culture - Final <10,000 CFU/ML. MULTIPLE SPECIES. PROBABLE CONTAMINATION. 05/15/18 00:22 Urine,Clean Catch Urine Culture - Final No Growth (<1,000 CFU/ML) Most Recent Lab Values WBC 7.2 K/uL (4.8-10.8) 05/15/18 08:17 RBC 3.93 Mil/uL (3.80-5.20) 05/15/18 08:17 Hgb 12.3 g/dL (12.0-16.0) D 05/15/18 08:17 Hct 37.2 % (34.0-47.0) 05/15/18 08:17 MCV 94.7 fl (81.0-99.0) 05/15/18 08:17 MCH 31.3 pg (27.0-31.0) H 05/15/18 08:17 MCHC 33.1 g/dL (33.0-37.0) 05/15/18 08:17 RDW 13.9 % (11.5-14.5) 05/15/18 08:17 Plt Count 304 K/uL (130-400) 05/15/18 08:17 MPV 7.4 fl (7.2-11.7) 05/15/18 08:17 Neut % (Auto) 64.7 % (50.0-75.0) 05/15/18 08:17 Lymph % (Auto) 26.7 % (20.0-40.0) 05/15/18 08:17 [place] % (Auto) 7.8 % (0.0-10.0) 05/15/18 08:17 Eos % (Auto) 0.1 % (0.0-4.0) 05/15/18 08:17 Baso % (Auto) 0.7 % (0.0-2.0) 05/15/18 08:17 Neut # (Auto) 4.7 K/uL (1.8-7.0) 05/15/18 08:17 Lymph # (Auto) 1.9 K/uL (1.0-4.3) 05/15/18 08:17 [place] # (Auto) 0.6 K/uL (0.0-0.8) 05/15/18 08:17 Eos # (Auto) 0.0 K/uL (0.0-0.7) 05/15/18 08:17 Baso # (Auto) 0.1 K/uL (0.0-0.2) 05/15/18 08:17 pCO2 31 mm/Hg (35-45) L 05/15/18 00:09 pO2 89 mm/Hg (80-100) 05/15/18 00:09 HCO3 18.3 mmol/L (21-28) L 05/15/18 00:09 ABG pH 7.33 (7.35-7.45) L 05/15/18 00:09 ABG Total CO2 17.3 mmol/L (22-28) L 05/15/18 00:09 ABG O2 Saturation 98.3 % (95-98) H 05/15/18 00:09 ABG O2 Content 19.4 ML/dL (15-23) 05/15/18 00:09 ABG Base Excess -8.3 mmol/L (-2.0-3.0) L 05/15/18 00:09 ABG Hemoglobin 14.8 g/dL (11.7-17.4) 05/15/18 00:09 ABG Carboxyhemoglobin 3.7 % (0.5-1.5) H 05/15/18 00:09 POC ABG HHb (Measured) 1.6 % (0.0-5.0) 05/15/18 00:09 ABG Methemoglobin 1.8 % (0.0-3.0) 05/15/18 00:09 ABG O2 Capacity 19.7 mL/dL (16-24) 05/15/18 00:09 Arvin Test Yes 05/15/18 00:09 A-a O2 Difference 22.0 mm/Hg 05/15/18 00:09 Hgb O2 Saturation 93.0 % (95.0-98.0) L 05/15/18 00:09 FiO2 21.0 % 05/15/18 00:09 Sodium 136 mmol/l (132-148) 05/15/18 08:17 Potassium 3.8 MMOL/L (3.6-5.0) 05/15/18 08:17 Chloride 104 mmol/L (98-107) 05/15/18 08:17 Carbon Dioxide 21 mmol/L (22-30) L 05/15/18 08:17 Anion Gap 15 (10-20) 05/15/18 08:17 BUN 12 mg/dl (7-17) 05/15/18 08:17 Creatinine 0.5 mg/dl (0.7-1.2) L 05/15/18 08:17 Est GFR ( Amer) > 60 05/15/18 08:17 Est GFR (Non-Af Amer) > 60 05/15/18 08:17 POC Glucose (mg/dL) 127 mg/dL (65-110) H 05/16/18 11:30 Random Glucose 147 mg/dL (65-105) H 05/15/18 08:17 Hemoglobin A1c 7.1 % (4.2-6.5) H 05/15/18 08:17 Calcium 8.8 mg/dL (8.4-10.2) 05/15/18 08:17 Total Bilirubin 0.7 mg/dl (0.2-1.3) 05/15/18 08:17 AST 72 U/L (14-36) H D 05/15/18 08:17 ALT 78 U/L (9-52) H D 05/15/18 08:17 Alkaline Phosphatase 46 U/L (38-126) 05/15/18 08:17 Total Protein 6.9 G/DL (6.3-8.2) 05/15/18 08:17 Albumin 4.0 g/dL (3.5-5.0) 05/15/18 08:17 Globulin 2.9 gm/dL (2.2-3.9) 05/15/18 08:17 Albumin/Globulin Ratio 1.4 (1.0-2.1) 05/15/18 08:17 Triglycerides 108 mg/DL (0-149) D 05/16/18 05:55 Cholesterol 125 mg/dL (0-199) 05/16/18 05:55 LDL Cholesterol Direct 65 mg/dL (0-129) 05/16/18 05:55 HDL Cholesterol 57 MG/DL (30-70) 05/16/18 05:55 Lipase 95 U/L (23-300) 05/14/18 22:20 Thyroxine (T4) 7.42 ug/dl (5.5-11.0) 05/16/18 05:55 TSH 3rd Generation 0.33 mIU/ML (0.46-4.68) L 05/16/18 05:55 Urine Color Yellow (YELLOW) 05/15/18 08:58 Urine Clarity Slighty-cloudy (Clear) 05/15/18 08:58 Urine pH 6.0 (5.0-8.0) 05/15/18 08:58 Ur Specific [place] 1.048 (1.003-1.030) H 05/15/18 08:58 Urine Protein 30 mg/dL (NEGATIVE) 05/15/18 08:58 Urine Glucose (UA) 50 mg/dL (Normal) 05/15/18 08:58 Urine Ketones 20 mg/dL (NEGATIVE) 05/15/18 08:58 Urine Blood Negative (NEGATIVE) 05/15/18 08:58 Urine Nitrate Negative (NEGATIVE) 05/15/18 08:58 Urine Bilirubin Negative (NEGATIVE) 05/15/18 08:58 Urine Urobilinogen 1.0 mg/dL (0.2-1.0) 05/15/18 08:58 Ur Leukocyte Esterase Neg Janet/uL (Negative) 05/15/18 08:58 Urine RBC (Auto) < 1 /hpf (0-3) 05/15/18 08:58 Ur Squamous Epith Cells < 1 /hpf (0-5) 05/15/18 08:58 Discharge Exam - Head Exam Head Exam: NORMAL INSPECTION Discharge Plan - Follow Up Plan Condition: FAIR Disposition: HOME/ ROUTINE
--- NOTE | 2018-05-16 18:08 | PN ---
DATE: 05/16/2018 ENDOCRINOLOGY FOLLOWUP NOTE LOCATION: In room 660. SUBJECTIVE: This is a 48-year-old female with recent uncontrolled type 2 diabetes, now being followed closely for metabolic management. LABORATORY DATA: Her glycemic levels overnight are fluctuating, but improved and the glucose values have ranged from 91 to 127 and 153 mg/dL. Her A1c was 7.1%. Chemistry showed a BUN of 12, sodium 136, potassium 3.8, chloride 104, CO2 of 21, glucose 147, and creatinine 0.5. ASSESSMENT AND PLAN: So at this time, we will continue the low-dose oral hypoglycemic therapy as given with glipizide given as 5 mg b.i.d. as ordered. We will hold off dose adjustments for now to allow for dose equilibration. We will also hold off the resumption of the metformin considering her GI related symptoms. We will follow and advise accordingly. Christi Jimenez MD
[2018-05-17] MEDS ORDERED: OMEPRAZOLE PO SCH (09:00)
== END 2018-05-16 16:02 | disposition home or self-care (01) | DRG 18 ==
LOC: H.ER 21:46 → H.ERHOLD 05-15 00:39 → H.MEDSURG1 05-15 14:29
PROVIDERS: ADMIT Internal Medicine Pulmonary Disease; ATTEND Internal Medicine Pulmonary Disease
DX: E11.43 Type 2 diabetes mellitus with diabetic autonomic (poly)neuropathy (principal); E86.0 Dehydration; F17.200 Nicotine dependence, unspecified, uncomplicated; I10 Essential (primary) hypertension; K21.9 Gastro-esophageal reflux disease without esophagitis; K31.84 Gastroparesis; K76.0 Fatty (change of) liver, not elsewhere classified; Z79.84 Long term (current) use of oral hypoglycemic drugs; Z79.899 Other long term (current) drug therapy; R00.0 Tachycardia, unspecified; D25.9 Leiomyoma of uterus, unspecified; E78.5 Hyperlipidemia, unspecified